=== PATIENT | female | born 2000 | race Caucasian/White ===

== ENCOUNTER 2023-12-24 05:48 | Emergency (ER) | payer BC, OTHER ==
[~2023-12-24] VITALS: Ht 160 cm; Wt 81.6 kg
[2023-12-24 05:50] VITALS: BP 138/87; PULSE 121; RESP 18; TEMP 99.1; O2SAT 98
[2023-12-24] MEDS ORDERED: DEXAMETHASONE 10 MG/ML VIAL PO ONE (06:50)
[2023-12-24] MEDS ORDERED: KETOROLAC 30 MG/ML VIAL IM ONE (06:50)
[2023-12-24] MEDS ORDERED: PROM473S5 PO (09:25)
[2023-12-24] MEDS ORDERED: LORA1T1237 PO (09:25)
[2023-12-24] MEDS ORDERED: IBUP-2213 PO (09:25)
[2023-12-24 09:26] LABS: FLU A ANTIGEN negative (NEGATIVE)
[2023-12-24 09:27] LABS: FLU B ANTIGEN negative (NEGATIVE)
[2023-12-24 09:35] VITALS: BP 131/73; PULSE 68; RESP 18; TEMP 98; O2SAT 98
[2023-12-25] MEDS ORDERED: PENI500T20 PO (15:18)
== END 2023-12-24 09:35 | disposition home or self-care (01) ==
LOC: MED 05:48
DX: J02.8 Acute pharyngitis due to other specified organisms (principal); Z20.822 Contact with and (suspected) exposure to COVID-19; B97.89 Other viral agents as the cause of diseases classified elsewhere; Z79.899 Other long term (current) drug therapy
CPT/HCPCS: 81025; 87081; 87426; 87804; 96372; 99283; J1100; J1885

== ENCOUNTER 2024-02-13 16:16 | Emergency (ER) | payer BC, OTHER ==
[~2024-02-13] VITALS: Ht 160 cm; Wt 113.4 kg
[~2024-02-13 16:16] MED LIST: IBUP-2213 PO; LORA1T1237 PO; PENI500T20 PO; PROM473S5 PO
[2024-02-13 16:27] VITALS: BP 123/81; PULSE 90; RESP 18; TEMP 98.1; O2SAT 99
[2024-02-13 19:06] VITALS: BP 120/76; PULSE 87; RESP 18; TEMP 97.8; O2SAT 99
[2024-02-13] MEDS ORDERED: CEPH-588 PO (19:33)
[2024-02-13] MEDS ORDERED: IBUP-2213 PO (19:33)
[2024-02-13] MEDS ORDERED: SULF-59 PO (19:33)
== END 2024-02-13 19:41 | disposition home or self-care (01) ==
LOC: MED 16:16
DX: L03.818 Cellulitis of other sites (principal); Z79.899 Other long term (current) drug therapy
CPT/HCPCS: 99283

== ENCOUNTER 2024-07-07 07:31 | Emergency (ER) | payer BC, OTHER ==
[~2024-07-07] VITALS: Ht 163.8 cm; Wt 120.3 kg
[~2024-07-07 07:31] MED LIST changes: +CEPH-588 PO; +SULF-59 PO
[2024-07-07 07:35] VITALS: BP 117/64; PULSE 86; RESP 18; TEMP 97.8; O2SAT 99
[2024-07-07] MEDS ORDERED: IBUP-2213 PO (08:30)
[2024-07-07] MEDS ORDERED: ACET-10509 PO (08:30)
[2024-07-07] MEDS: KETOROLAC 30 MG/ML VIAL IM ONE (08:34)
[2024-07-07] MEDS ORDERED: IBUP100S40 PO (08:50)
[2024-07-07] MEDS ORDERED: ACET650S53 GT (08:50)
== END 2024-07-07 09:02 | disposition home or self-care (01) ==
LOC: MED 07:31
DX: R07.89 Other chest pain (principal); Z79.1 Long term (current) use of non-steroidal anti-inflammatories (NSAID); Z79.2 Long term (current) use of antibiotics; Z79.899 Other long term (current) drug therapy
CPT/HCPCS: 71046; 93005; 96372; 99283; J1885

== ENCOUNTER 2024-07-12 22:43 | Emergency (ER) | payer BC ==
[~2024-07-12] VITALS: Ht 160 cm; Wt 117.5 kg
[~2024-07-12 22:43] MED LIST changes: +ACET650S53 GT; +IBUP100S40 PO
[2024-07-12 22:56] VITALS: BP 150/78; PULSE 89; RESP 14; TEMP 97.3; O2SAT 99
[2024-07-13] MEDS ORDERED: ACET-2619 PO (00:17)
[2024-07-13] MEDS ORDERED: PRED20TA5 PO (00:17)
== END 2024-07-13 00:25 | disposition home or self-care (01) ==
LOC: MED 22:43
DX: N64.4 Mastodynia (principal); Z79.1 Long term (current) use of non-steroidal anti-inflammatories (NSAID); Z79.2 Long term (current) use of antibiotics; Z79.899 Other long term (current) drug therapy
CPT/HCPCS: 71046; 99283; 99284

== ENCOUNTER 2024-07-24 21:44 | Emergency (ER) | payer BC ==
[~2024-07-24] VITALS: Ht 160 cm; Wt 122.9 kg
[~2024-07-24 21:44] MED LIST changes: +ACET-2619 PO; +PRED20TA5 PO
[2024-07-24 21:57] VITALS: BP 169/103; PULSE 123; RESP 20; TEMP 98; O2SAT 99
[2024-07-24 22:36] VITALS: O2SAT 98
[2024-07-24] MEDS ORDERED: LIDOCAINE MPF 1% 5 ML ONE (22:56)
[2024-07-24] MEDS ORDERED: AMOX500C25 PO (23:19)
[2024-07-24] MEDS ORDERED: IBUP-2213 PO (23:19)
[2024-07-24] MEDS: NEOMYCIN/POLYMYXIN/BACITRACIN 0.9 GM/1 PKT TP STA (23:34)
[2024-07-24] MEDS: IBUPROFEN 800 MG TAB PO ONE (23:48)
== END 2024-07-24 23:48 | disposition home or self-care (01) ==
LOC: MED 21:44
DX: S01.511A Laceration without foreign body of lip, initial encounter (principal); Z79.899 Other long term (current) drug therapy; W22.8XXA Striking against or struck by other objects, initial encounter; Y93.89 Activity, other specified; Y92.89 Other specified places as the place of occurrence of the external cause; Y99.8 Other external cause status
CPT/HCPCS: 90715; 99282; 99283; J2001

== ENCOUNTER 2024-07-30 00:40 | Emergency (ER) | payer BC ==
[~2024-07-30] VITALS: Ht 160 cm; Wt 122.0 kg
[~2024-07-30 00:40] MED LIST changes: +AMOX500C25 PO
[2024-07-30 01:06] VITALS: BP 119/83; PULSE 84; RESP 18; TEMP 97.6; O2SAT 96
[2024-07-30 01:35] VITALS: BP 119/83; PULSE 84; RESP 18; TEMP 97.6; O2SAT 96
== END 2024-07-30 01:35 | disposition home or self-care (01) ==
LOC: MED 00:40
DX: S01.511D Laceration without foreign body of lip, subsequent encounter (principal); Z48.00 Encounter for change or removal of nonsurgical wound dressing; Z79.899 Other long term (current) drug therapy; X58.XXXD Exposure to other specified factors, subsequent encounter
CPT/HCPCS: 99281